=== PATIENT | female | born 1945 | race Caucasian/White ===

== ENCOUNTER 2016-11-24 18:23 | Emergency (ER) | payer OTHER, MEDICAID ==
[~2016-11-24 18:23] MED LIST: IRON TABLETS325 MG PO; LEVOTHYROXIN0.125 MG PO; PANTOPRAZOLE40 MG PO; PROMETHAZINE12.5 M2 PO; [UNRECOGNIZED DRUG - OTHER] PO
[2016-11-24 21:08] LABS: CARBON DIOXIDE 28.3 mmol/L (21-32); CHLORIDE SERUM 103 mmol/L (98-107); CREATININE SERUM 0.4 mg/dL (0.6-1.0); GFR1 > 60 mL/min; GLUCOSE SERUM 110 mg/dL (74-106); POTASSIUM SERUM 4.5 mmol/L (3.5-5.1); SODIUM SERUM 139 mmol/L (136-145)
[2016-11-24 22:25] VITALS: BP 96/58
== END 2016-11-24 22:25 | disposition home or self-care (01) ==
LOC: ED 18:23
PROVIDERS: Emergency Medicine
DX: K59.00 Constipation, unspecified (principal); E03.9 Hypothyroidism, unspecified

== ENCOUNTER → 2018-03-31 | Outpatient (CLI) | payer OTHER, MEDICAID | END | disposition home or self-care (01) | LOC: RD 12:50 | DX: R91.8 Other nonspecific abnormal finding of lung field (principal) ==

== ENCOUNTER → 2018-07-08 | Outpatient (CLI) | payer OTHER, MEDICAID ==
[2018-07-08 12:37] LABS: CALCIUM 8.9 mg/dL (8.5-10.1); CARBON DIOXIDE 26.1 mmol/L (21-32); CHLORIDE SERUM 104 mmol/L (98-107); CREATININE SERUM 0.4 mg/dL (0.6-1.0); GLUCOSE SERUM 103 mg/dL (74-106); POTASSIUM SERUM 3.9 mmol/L (3.5-5.1); SODIUM SERUM 140 mmol/L (136-145)
[2018-07-08 12:52] LABS: PLATELET COUNT 225 x10^3mcL (130-400)
[2018-07-08 12:54] LABS: RED CELL DISTRIBUTION WIDTH 14.7 % (11.5-14.5)
[2018-07-08 14:00] LABS: BAND NEUTROPHIL 5 % (0-10); SEGMENTED NEUTROPHILS 50 % (37-75)
[2018-07-08 14:01] LABS: ATYPICAL LYMPH 5 %; MONOCYTE 13 % (0-7)
[2018-07-08 14:03] LABS: PLATELET MORPHOLOGY PLATELETS NORMAL; rbc morphology (normal/abnorm) NORMAL (NORMAL)
== END | disposition home or self-care (01) ==
LOC: RD 11:32
DX: J18.9 Pneumonia, unspecified organism (principal)